=== PATIENT | female | born 1975 ===

== ENCOUNTER 2018-08-26 13:18 | Emergency (ER) | payer BC ==
[2018-08-26 13:25] VITALS: RESP 18; O2SAT 97
[2018-08-26] MEDS ORDERED: Sodium Chloride 0.9% 1,000 ML IV STA (13:39)
--- NOTE | 2018-08-26 14:02 | ED PDOC ---
HPI: Female Pain Time Seen by Provider: 08/26/18 13:32 Chief Complaint (Nursing): Female Genitourinary Chief Complaint (Provider): Female Genitourinary History Per: Patient History/Exam Limitations: no limitations Onset/Duration Of Symptoms: Days Current Symptoms Are (Timing): Still Present Additional Complaint(s): 42 year old female with a past medical history of uterine fibroids who is presenting to the ED for evaluation of heavy vaginal bleeding ongoing and fol lowed by a PMD. Patient states that she was diagnosed with uterine fibroids but reports that bleeding became heavier today where she soaked through 4 pads. She reports that symptoms were associated with dizziness and admits that she is scheduled for an MRI however she could not wait due to excessive bleeding. Patient offers no other medical complaints at this time. PMD: none provided Abnormal Vaginal Bleeding: Yes Past Medical History Reviewed: Historical Data, Nursing Documentation, Vital Signs Vital Signs: Last Vital Signs Temp 98.8 F 08/26/18 13:21 Pulse 91 H 08/26/18 13:21 Resp 18 08/26/18 13:21 BP 146/68 08/26/18 13:21 Pulse Ox 97 08/26/18 13:21 - Medical History Other PMH: uterine fibroids - Surgical History Surgical History: No Surg Hx - Family History Family History: States: Unknown Family Hx - Social History Current smoker - smoking cessation education provided: No Alcohol: None Drugs: Denies - Allergies Allergies/Adverse Reactions: Allergies Allergy/AdvReac Type Severity Reaction Status Date / Time No Known Allergies Allergy Verified 08/26/18 13:25 Review of Systems ROS Statement: Except As Marked, All Systems Reviewed And Found Negative Genitourinary Female: Positive for: Vaginal Bleeding Neurological: Positive for: Dizziness Physical Exam - Reviewed Nursing Documentation Reviewed: Yes Vital Signs Reviewed: Yes - Physical Exam Appears: Positive for: Non-toxic, No Acute Distress Head Exam: Positive for: ATRAUMATIC, NORMAL INSPECTION, NORMOCEPHALIC Skin: Positive for: Normal Color, Warm, DRY Cardiovascular/Chest: Positive for: Regular Rate, Rhythm. Negative for: Murmur Respiratory: Positive for: Normal Breath Sounds. Negative for: Respiratory Distress Gastrointestinal/Abdominal: Positive for: Normal Exam, Soft. Negative for: Tenderness Back: Positive for: Normal Inspection Extremity: Positive for: Normal ROM. Negative for: Deformity, Swelling Neurologic/Psych: Positive for: Alert, Oriented. Negative for: Motor/Sensory Deficits - Laboratory Results Result Diagrams: 08/26/18 14:05 08/26/18 14:05 - ECG O2 Sat by Pulse Oximetry: 97 (RA) Pulse Ox Interpretation: Normal Medical Decision Making Medical Decision Making: Time: 13:39 Plan: --Blood Type and Screen --CMP --ED urine dipstick --ED Urine --CBC --IV Fluids Discussed MRI findings as well as Hgb with Dr. Baez. Will follow with Dr. Espinoza in office to determine need for hysterectomy Scribe Attestation: Documented by Rand Armendariz, acting as a scribe for Trino Jolly MD. Provider Scribe Attestation: All medical record entries made by the Scribe were at my direction and personally dictated by me. I have reviewed the chart and agree that the record accurately reflects my personal performance of the history, physical exam, medical decision making, and the department course for this patient. I have also personally directed, reviewed, and agree with the discharge instructions and disposition. Disposition - Clinical Impression Clinical Impression: Menorrhagia, Fibroids - Patient ED Disposition Is Patient to be Admitted: No - Disposition Referrals: Osman Espinoza DO [Staff Provider] - Disposition: Routine/Home Disposition Time: 17:41 Condition: FAIR Instructions: Uterine Fibroids, Heavy Periods Forms: copygram (Ecuadorean)
[2018-08-26 14:20] LABS: BASO # 0.1 K/uL (0.0-0.2); BASO % 1.5 % (0.0-2.0); EOS # 0.2 K/uL (0.0-0.7); HEMOGLOBIN 8.8 g/dL (12.0-16.0); LYMPH % 24.3 % (20.0-40.0); MEAN CELL VOLUME 67.4 fl (81.0-99.0); MEAN CORPUSCULAR HEMOGLOBIN 20.2 pg (27.0-31.0); MEAN PLATELET VOLUME 7.9 fl (7.2-11.7); MONO # 0.6 K/uL (0.0-0.8); MONO % 7.8 % (0.0-10.0); NEUT # 5.4 K/uL (1.8-7.0); NEUT % 64.4 % (50.0-75.0); RBC 4.35 Mil/uL (3.80-5.20); RED CELL DISTRIBUTION WIDTH 18.7 % (11.5-14.5); WHITE BLOOD COUNT 8.4 K/uL (4.8-10.8)
[2018-08-26] MEDS ORDERED: Gadodiamide 287 MG/ML VIAL (15ML) IV ONE (14:37)
[2018-08-26 14:39] LABS: ALB/GLOB RATIO 1.1 (1.0-2.1); ALBUMIN 4.1 g/dL (3.5-5.0); ALT/SGPT 31 U/L (9-52); AST/SGOT 28 U/L (14-36); BLOOD UREA NITROGEN 13 mg/dl (7-17); CALCIUM 9.3 mg/dL (8.4-10.2); GFR NON-AFRICAN AMERICAN > 60
[2018-08-26 18:13] VITALS: BP 125/82; PULSE 72; TEMP 98.4
--- NOTE | 2018-08-27 15:54 | MRI ---
MRI pelvis without/with IV contrast Indication: uterine fibroids Technique: Multiplanar, multi sequence magnetic resonance images of the pelvis were obtained without and with the administration of intravenous gadolinium. A total of 474 images submitted for review Comparison: None available Findings: The uterus measures approximately 7.0 x 7.2 x 10.6 cm. Anteverted. Heterogeneous uterine echotexture. Numerous uterine masses consistent with fibroids. For example: Largest at the fundus measures approximately 4.2 x 5.3 x 4.9 cm and appears intramural. 0.7 cm endometrial nodule, considerations include either fibroid, polyp, or neoplasm. Submucosal anterior right uterine mass consistent with fibroid measures approximately 1.5 cm. The endometrium measures approximately 6 mm in maximum dimension. Bilateral ovaries are identified. 4.1 x 5.5 cm left ovarian cyst. Right ovarian cystic appearing structure appears T1 hyperintense T2 hyperintense, possibly representing complex proteinaceous or hemorrhagic cysts for hydrosalpinx. Nabothian cysts. Under distended urinary bladder appears unremarkable. Included bowel loops appear within normal limits of caliber without evidence of obstruction. No significant pelvic free fluid. No acute osseous abnormality is detected. Impression: Fibroid uterus. 0.7 cm nodule within the endometrial cavity; considerations include either fibroid, polyp, or neoplasm. If indicated, recommend further evaluation with hysteroscopy. 4.1 x 5.5 cm left ovarian cyst. Recommend 6 week ultrasound follow-up in order to assess for resolution. Right ovarian cystic appearing structure as described above possibly representing complex proteinaceous or hemorrhagic cysts or hydrosalpinx. Recommend further evaluation with pelvic ultrasound. Additional findings as above. Preliminary impression was provided by [employer]. Study marked for PA review.
== END 2018-08-26 18:48 | disposition home or self-care (01) ==
LOC: H.ER 13:18
DX: N92.0 Excessive and frequent menstruation with regular cycle (principal); D25.9 Leiomyoma of uterus, unspecified; R42 Dizziness and giddiness
CPT/HCPCS: 72197; 80053; 81025; 85025; 99284; A9579; J7030

== ENCOUNTER 2018-09-14 06:05 | Observation (INO) | payer BC ==
[2018-09-07 11:24] VITALS: BMI 38.7
[2018-09-14] MEDS ORDERED: Lactated Ringer's 1,000 ML IV ONE ×2 (07:00→09:40)
[2018-09-14] MEDS ORDERED: Propofol 10 mg/ml Inj (20 ML) ONE (07:30)
[2018-09-14] MEDS ORDERED: Midazolam 2 MG/2 ML VIAL ONE (07:31)
[2018-09-14] MEDS ORDERED: ePHEDrine 50 mg/ml Inj ONE (07:31)
[2018-09-14] MEDS ORDERED: Succinylcholine Chloride 20 mg/ml Syr (5 ml) IV ONE (07:32)
[2018-09-14] MEDS ORDERED: Rocuronium 10 mg/ml (5 ml) ONE ×2 (07:32→09:35)
[2018-09-14] MEDS ORDERED: Desflurane Inhalation Anesthetic Liq (240 ml) ONE (07:36)
[2018-09-14] MEDS ORDERED: Succinylcholine 200 mg/10 ml Inj IV ONE (08:01)
[2018-09-14] MEDS ORDERED: STERILE IRRIGATING SOLUTION 15 ML IR ONE (08:19)
[2018-09-14] MEDS ORDERED: Sodium Chloride 0.9% 1,000 ML IV ONE (08:25)
[2018-09-14] MEDS ORDERED: Dexamethasone 4 mg/1 ml ONE (09:09)
[2018-09-14] MEDS ORDERED: Bupivacaine 0.5% Inj(30mL) IJ ONE ×2 (09:15)
[2018-09-14] MEDS ORDERED: Sevoflurane - Inhalation Anesthetic Liq (250 ml) ONE (09:44)
[2018-09-14] MEDS ORDERED: Neostigmine 1:1000 (1 mg/ml) Inj ONE (10:51)
[2018-09-14] MEDS ORDERED: ceFAZolin 1 GM in Sodium Chloride 0.9% 100 ML IVPB SCH (11:15)
[2018-09-14] MEDS ORDERED: Naloxone 0.4 mg/ml Inj (Adult) IVP PRN (11:33)
[2018-09-14] MEDS: HYDROmorphone 0.5 mg/0.5 ml ISec IVP PRN ×5 (11:55→12:55)
[2018-09-14 12:27] LABS: HEMOGLOBIN 8.3 g/dL (12.0-16.0); MEAN CELL VOLUME 64.7 fl (81.0-99.0); MEAN CORPUSCULAR HEMOGLOBIN 19.5 pg (27.0-31.0); MEAN CORPUSCULAR HGB CONC 30.1 g/dL (33.0-37.0); RBC 4.24 Mil/uL (3.80-5.20); RED CELL DISTRIBUTION WIDTH 17.8 % (11.5-14.5); WHITE BLOOD COUNT 17.5 K/uL (4.8-10.8)
[2018-09-14] MEDS: Lactated Ringer's 1,000 ML IV SCH ×4 (14:20→23:30)
[2018-09-14] MEDS ORDERED: Pneumococcal 23-Valent Vaccine IM ONE (15:39)
[2018-09-14] MEDS: ceFAZolin 1 GM in Sodium Chloride 0.9% 100 ML IVPB SCH ×2 (17:36→23:33)
[2018-09-15] MEDS: Lactated Ringer's 1,000 ML IV SCH ×4 (04:00→19:51)
--- NOTE | 2018-09-15 07:03 | OP ---
PROCEDURE DATE: 09/14/2018 PREOPERATIVE DIAGNOSES: Symptomatic fibroid uterus, pelvic pain and pressure. POSTOPERATIVE DIAGNOSES: Symptomatic fibroid uterus, pelvic pain and pressure with endometriosis and endometrioma. SURGEON: Jackie Baez MD PREP COOK: Stewart Mattson MD. He was helpful in creating exposure, obtaining hemostasis, retraction, and extraction of the specimen. The procedure would not have been possible without his assistance. ESTIMATED BLOOD LOSS: Approximately 125 mL. URINE OUTPUT: Slater catheter put out approximately 800 mL of clear urine. INTRAVENOUS FLUID INTAKE: The patient received 2200 mL of D5 LR intraoperatively. OPERATION PERFORMED: Robotic hysterectomy, cystoscopy with stent placement, lysis of adhesions, right ovarian cystectomy. DESCRIPTION OF PROCEDURE: After informed consent was obtained, the patient was taken to the operating room. She was placed in dorsal lithotomy position. Dolphin stirrups were used. The patient was prepped and draped in a normal sterile fashion. Attention was then turned to urethra where a cystoscope was inserted. The left ureteral orifice and right ureteral orifice were both identified. We then proceeded to stent the left ureteral orifice. We stented the left ureteral orifice, 5 mL of ICG Green was injected. The stent was removed. The similar procedure was performed on the right. The cystoscope was then removed from the bladder. Attention was then turned to the vagina where a speculum was inserted. The cervix was visualized and grasped with a single-tooth tenaculum. The cervix was gently dilated. A [employer] uterine manipulator was inserted into the uterine cavity as means to manipulate the uterus. Attention was turned to the urethra, and a Slater catheter was inserted to monitor the patient's urinary output. We then proceeded to the abdomen where Marcaine was infused. An 8-mm incision was made approximately 3 cm superior to the umbilicus. An 8-mm incision was made and a Veress needle was inserted in the abdomen. Placement was confirmed with a fluid-filled syringe. The abdomen was then insufflated to 20 mmHg. The Veress needle was removed. An 8-mm robotic port was introduced into the abdominal cavity. Placement was confirmed with a laparoscope. The abdomen was then surveyed with the findings noted above. Attention was then turned to approximately 5 cm superior to the right anterior iliac crest. Marcaine was infused. An 8-mm incision was made, and a robotic port was introduced under direct visualization. A similar procedure was performed on the left. Attention was then turned to approximately 10 cm right and lateral to the umbilicus. Marcaine was infused. An 8-mm incision was made and robotic port was introduced under direct visualization. Attention was then turned to approximately 10 cm left and lateral to the umbilicus. A 5-mm incision was made, and the statistical assistant port was introduced into the abdominal cavity. The patient was then placed in a steep Trendelenburg. The robot was brought along the patient's side and docked without complication. Instruments used for the surgery were Scott Suture Cut, ProGrasp, and PK dissector and Scissor. Attention was then turned to the left utero-ovarian ligament which was serially coagulated and transected with the scissor. We then proceeded anteriorly where the fallopian tube was identified, serially coagulated and transected with the scissor. We approached round ligament. It was serially coagulated and transected with the scissor. The vesicouterine peritoneum was then identified, undermined with PK dissector and transected with the scissor down to the level of the VCare cup anteriorly. We then proceeded posteriorly where the posterior peritoneum was undermined with PK dissector and transected with the scissor down to the VCare cup posteriorly. As we approached uterosacral ligament, we noted some bowel adhesions adherent to the posterior aspect of the uterus. Those were dissected off using both sharp and blunt dissection. We then skeletonized uterine artery on the left. It was serially coagulated, then transected with the scissors. The VCare cup was identified anteriorly, laterally, and posteriorly. We then proceeded to the right side where in a similar fashion, the utero-ovarian ligament was identified, serially coagulated and transected with the scissor. The right ovary contained a large ovarian cyst. The findings were consistent with chocolate colored fluid consistent with an ovarian endometrioma, and there were extensive adhesions. The ovary was adherent to the posterior ovarian fossa. The ovary was grasped with the ProGrasp, elevated up, and the ovary was dissected free using both sharp and blunt dissection. The ovarian cortex was then scored. The cyst wall was enucleated using both sharp and blunt dissection. Hemostasis was obtained using the PK dissector. We then identified the tubes, serially coagulated and transected, and we proceeded anteriorly towards the round ligament which was then serially coagulated and transected. The vesicouterine peritoneum was identified and entered sharply with the scissor and dissected down to the VCare cup anteriorly. We then proceeded posteriorly where the posterior peritoneum was undermined with the scissors, and we dissected down towards VCare cup posteriorly. The uterine arteries were identified, skeletonized, and serially coagulated and transected with the scissor. The Firefly technology was activated. Both the ureters were identified, noted to have peristalsis. We then proceeded to amputate the cervix from the vagina using the hot sha. Prior to complete amputation, the fundal myoma was identified. The uterine serosa was scored. The fibroid was enucleated from the uterus. We then proceeded to continue the amputation of the cervix from the vagina. The specimen was then extracted gradually. The fibroid was followed. The vaginal cuff was closed with a 2-0 Vicryl and a barbed suture. The abdomen was then copiously irrigated. The irrigant was removed with a suction device. Everything was noted to be hemostatic. All instruments were then removed from the patient's abdomen. The incisions were repaired with 3-0 Biosyn and Dermabond. All sponge, lap, needle, and instrument counts were correct x2. The patient was taken to recovery room in awake and stable condition. Jackie Baez MD [facility]
[2018-09-15] MEDS: ceFAZolin 1 GM in Sodium Chloride 0.9% 100 ML IVPB SCH (08:37)
[2018-09-15] MEDS: Oxycodone/Acetaminophen 5/325 mg Tab PO PRN ×3 (12:07→19:53)
[2018-09-16] MEDS: Oxycodone/Acetaminophen 5/325 mg Tab PO PRN ×2 (00:13→09:00)
[2018-09-16] MEDS: Lactated Ringer's 1,000 ML IV SCH ×2 (03:04→03:50)
[2018-09-16 08:23] VITALS: BP 101/65; PULSE 84; RESP 20; TEMP 97.5; O2SAT 92
--- NOTE | 2018-09-16 09:42 | CP.SDSHP ---
Same Day Surgery H & P - Allergies Allergies: Allergies No Known Allergies Allergy (Verified 09/14/18 06:27) - Physical Exam Vital Signs: Vital Signs 09/16/18 08:22 Temperature 97.5 F L Pulse Rate 84 Respiratory 20 Rate Blood Pressure 101/65 O2 Sat by Pulse 92 L Oximetry Short Stay Discharge - Short Stay Discharge Admitting Diagnosis/Reason for Visit: D25.9/N92.0 Referrals: Hema Hernandez [Family Provider] - Jackie Wilde MD [Staff Provider] - Instructions: Hysterectomy (DC), Endometriosis (DC), Uterine Fibroids (DC), Robot-Assisted Hysterectomy Additional Instructions (Diet, Activity): follow up with dr wilde 1 week Progress Note/Discharge Note with Instructions: Patient doing well ambulating tolerating diet voiding without difficulty Vital signs stable afebrile Abdomen soft nontender nondistended no rebound no guarding dressings intact no staining Extremities no Homans Postoperative day #2 Discharge home Follow-up with Dr. Wilde in 1 week Nothing per vagina No heavy lifting
== END 2018-09-16 11:36 | disposition home or self-care (01) ==
LOC: H.OPSURG 06:05 → H.MEDSURG1 11:15 → H.OPSURG 15:20
PROVIDERS: ADMIT Obstetrics & Gynecology Gynecology; ATTEND Obstetrics & Gynecology Gynecology
DX: D25.1 Intramural leiomyoma of uterus (principal); D26.1 Other benign neoplasm of corpus uteri; N80.0 Endometriosis of uterus; N83.291 Other ovarian cyst, right side; N92.0 Excessive and frequent menstruation with regular cycle; R10.2 Pelvic and perineal pain; Z23 Encounter for immunization
CPT/HCPCS: 36415; 52005; 58570; 58662; 85027; 86850; 86900; 88305; 90732; 94770; C1729; G0009; G0378; J0330; J0690; J1100; J1170; J2001; J2250; J2405; J2704; J2710; J3010; J7030; J7120; S2900